=== PATIENT | female | born 1990 | race Caucasian/White ===

== ENCOUNTER 2017-02-15 16:04 | Emergency (ER) | payer BC, OTHER ==
[~2017-02-15] VITALS: Ht 160 cm; Wt 127.0 kg
[2017-02-15 16:05] VITALS: BP 158/88; PULSE 124; RESP 14; TEMP 98.7; O2SAT 99
--- NOTE | 2017-02-15 16:24 | PD ---
HPI Chief Complaint: lightheaded, nosebleed Time Seen by Provider: 16:12 Travel History International Travel<30 days: No Contact w/Intl Traveler<30days: No Traveled to known affect area: No History of Present Illness HPI This 26-year-old female says she woke up and had some blood coming from her right nostril. The bleeding stopped fairly quickly. When she was standing later she felt lightheaded but did not pass out. She did not have any chest pain. She had a cough for a couple weeks but seems to be improving. She is currently 24 weeks . This is her second . She did have some high blood pressure with her first is not on medication. She has had some elevated readings during this . She says her systolic has been 1e30 on some of her office visits. sHe has never been on antihypertensive medicine [facility] Past Medical History Diminished Hearing: No ?: Past Surgical History Appendectomy: Yes Social History Alcohol Use: Yes (OCCASIONAL) Tobacco Use: No Substance Use: No Allergies-Medications (Allergen,Severity, Reaction): Coded Allergies: No Known Allergies (Unverified , 02/15/17) Reported Meds & Prescriptions Reported Meds & Active Scripts Active Reported Plus Iron 29-1 mg ( Vit-Iron Carbonyl) 1 Tab Tab 1 Tab PO DAILY Review of Systems General / Constitutional: No: Fever, Chills Eyes: No: Diploplia, Blurred Vision HENT: Positive: Nosebleed Cardiovascular: No: Chest Pain or Discomfort Respiratory: Positive: Cough Gastrointestinal: No: Nausea, Vomiting Genitourinary: No: Urgency, Frequency Musculoskeletal: No: Myalgias, Arthralgias Skin: No Rash, No Itching Neurologic: Positive: Weakness, Dizziness Physical Exam Narrative GENERAL: Well-developed female initially blood pressure is 158/88 with pulse rate of 124 SKIN: Focused skin assessment warm/dry. HEAD: Atraumatic. Normocephalic. EYES: Pupils equal and round. No scleral icterus. No injection or drainage. ENT: No nasal bleeding or discharge. There is some dried blood in the right nostril Mucous membranes pink and moist. NECK: Trachea midline. No JVD. CARDIOVASCULAR: Regular rate and rhythm. No murmur appreciated. RESPIRATORY: No accessory muscle use. Clear to auscultation. Breath sounds equal bilaterally. GASTROINTESTINAL: Abdomen soft, non-tender, nondistended. Hepatic and splenic margins not palpable. MUSCULOSKELETAL: No obvious deformities. No clubbing. No cyanosis. No edema. NEUROLOGICAL: Awake and alert. No obvious cranial nerve deficits. Motor grossly within normal limits. Normal speech. PSYCHIATRIC: Appropriate mood and affect; insight and judgment normal. Data Data Last Documented VS Vital Signs Date Time Temp Pulse Resp B/P Pulse Ox O2 Delivery O2 Flow Rate FiO2 02/15/17 17:37 164/69 168/70 02/15/17 16:21 16 99 Room Air 02/15/17 16:05 98.7 124 Orders Complete Blood Count With Diff (02/15/17 16:19) Basic Metabolic Panel (Bmp) (02/15/17 16:19) Urinalysis - C+S If Indicated (02/15/17 16:26) Labs Laboratory Tests Test 02/15/17 02/15/17 16:40 16:49 Urine Color STRAW Urine Turbidity CLEAR Urine pH 7.0 Urine Specific [place] 1.003 Urine Protein NEG mg/dL Urine Glucose (UA) NEG mg/dL Urine Ketones NEG mg/dL Urine Occult Blood NEG Urine Nitrite NEG Urine Bilirubin NEG Urine Leukocyte Esterase TRACE Urine WBC 0-2 /hpf Urine Squamous Epithelial 0-5 /hpf Cells Microscopic Urinalysis Comment CULT NOT INDICATED White Blood Count 11.4 TH/MM3 Red Blood Count 3.89 MIL/MM3 Hemoglobin 10.7 GM/DL Hematocrit 32.1 % Mean Corpuscular Volume 82.6 FL Mean Corpuscular Hemoglobin 27.6 PG Mean Corpuscular Hemoglobin 33.4 % Concent Red Cell Distribution Width 12.8 % Platelet Count 259 TH/MM3 Mean Platelet Volume 8.2 FL Neutrophils (%) (Auto) 77.4 % Lymphocytes (%) (Auto) 13.9 % Monocytes (%) (Auto) 4.8 % Eosinophils (%) (Auto) 0.9 % Basophils (%) (Auto) 3.0 % Neutrophils # (Auto) 8.9 TH/MM3 Lymphocytes # (Auto) 1.6 TH/MM3 Monocytes # (Auto) 0.5 TH/MM3 Eosinophils # (Auto) 0.1 TH/MM3 Basophils # (Auto) 0.3 TH/MM3 CBC Comment DIFF FINAL Differential Comment Sodium Level 141 MEQ/L Potassium Level 3.6 MEQ/L Chloride Level 106 MEQ/L Carbon Dioxide Level 25.6 MEQ/L Anion Gap 9 MEQ/L Blood Urea Nitrogen 7 MG/DL Creatinine 0.57 MG/DL Estimat Glomerular Filtration 129 ML/MIN Rate Random Glucose 86 MG/DL Calcium Level 8.5 MG/DL MDM Medical Decision Making Medical Screen Exam Complete: Yes Emergency Medical Condition: Yes Medical Record Reviewed: Yes Differential Diagnosis Differential includes hypertension, epistaxis, Narrative Course Patient appeared stable in the ER. There was no further bleeding. He. Blood pressure is however have been elevated. Her most recent pressure is 168/70. I have spoken with Dr. Marrero and she recommends that the patient be transferred to the [facility] ER for evaluation of her blood pressure. Patient is stable for discharge and will go there by private vehicle Diagnosis Primary Impression: Hypertension Additional Impression: Additional Instructions: Go to [facility] ED now Mitesh Eric MD Feb 15, 2017 16:23
[2017-02-15] MEDS ORDERED: PREN29TA PO (16:34)
[2017-02-15 16:58] LABS: AUTOMATED NEUTROPHIL # 8.9 TH/MM3 (1.8-7.7); BASOPHIL # 0.3 TH/MM3 (0-0.2); EOSINOPHIL # 0.1 TH/MM3 (0-0.4); EOSINOPHIL % 0.9 % (0.0-4.0); HEMATOCRIT 32.1 % (35.0-46.0); HEMO FLAGS DIFF FINAL; LYMPH % 13.9 % (9.0-44.0); LYMPHOCYTE # 1.6 TH/MM3 (1.0-4.8); MEAN CELL VOLUME 82.6 FL (80.0-100.0); MEAN CORPUSCULAR HEMOGLOBIN 27.6 PG (27.0-34.0); MEAN CORPUSCULAR HGB CONC 33.4 % (32.0-36.0); MONO % 4.8 % (0.0-8.0); NEUT % 77.4 % (16.0-70.0); PLATELET COUNT 259 TH/MM3 (150-450); RED BLOOD COUNT 3.89 MIL/MM3 (4.00-5.30); RED CELL DISTRIBUTION WIDTH 12.8 % (11.6-17.2); WHITE BLOOD COUNT 11.4 TH/MM3 (4.0-11.0)
[2017-02-15 17:06] LABS: CHLORIDE 106 MEQ/L (98-107); POTASSIUM 3.6 MEQ/L (3.5-5.1); SODIUM (NA) 141 MEQ/L (136-145)
[2017-02-15 17:10] LABS: ANION GAP 9 MEQ/L (5-15); BICARBONATE 25.6 MEQ/L (21.0-32.0); BLOOD UREA NITROGEN 7 MG/DL (7-18)
[2017-02-15 17:13] LABS: GLOMERULAR FILTRATION RATE 129 ML/MIN (>89)
[2017-02-15 17:15] LABS: BLOOD, URINE NEG (NEG); GLUCOSE,URINE NEG (NEG); KETONE, URINE NEG (NEG); NITRITE,URINE NEG (NEG)
[2017-02-15 17:25] LABS: URINE COLOR STRAW (YELLW/STRAW)
[2017-02-15 17:26] LABS: COMMENT (UR) CULT NOT INDICATED; CULTURE IF INDICATED CULT NOT INDICATED; SQUAMOUS EPITHELIAL CELL URINE 0-5 /hpf (0-5); WBC, URINE 0-2 /hpf (0-5)
[2017-02-15 17:37] VITALS: BP_SYST 164; BP_SYST 168; BP_DIAS 69; BP_DIAS 70
[2017-02-15 18:26] VITALS: BP 166/79
[2017-02-15 20:29] LABS: ALT (GPT) 15 U/L (10-53); AST (GOT) 10 U/L (15-37)
[2017-02-15 20:30] LABS: TOTAL BILIRUBIN ADULT 0.2 MG/DL (0.2-1.0)
[2017-02-15 20:32] LABS: ALKALINE PHOSPHATASE 72 U/L (45-117)
== END 2017-02-15 18:29 | disposition home or self-care (01) ==
LOC: PHED 16:04
DX: O26.92 Pregnancy related conditions, unspecified, second trimester (principal); Z3A.24 24 weeks gestation of pregnancy; R03.0 Elevated blood-pressure reading, without diagnosis of hypertension; R04.0 Epistaxis
CPT/HCPCS: 80053; 81001; 85025; 99284

== ENCOUNTER 2017-02-15 19:21 | Emergency (ER) | payer OTHER ==
[~2017-02-15 19:21] MED LIST: PREN29TA PO
--- NOTE | 2017-02-15 23:37 | PD ---
HPI Chief Complaint High blood pressure Date Seen: Feb 15, 2017 Time Seen: 20:00 Travel History International Travel<30 Days: No Contact w/Intl Traveler<30Days: No Known Affected Area: No History of Present Illness HPI This patient is a 26-year-old white female at 23 weeks gestation [address] by [address] Zaman for care, who that's for evaluation of high blood pressure noted of the day. Patient states that she was just wasn't feeling well and went in to be checked in her pressure blood pressure was elevated somewhat and she was slightly tachycardic says she was sent up here the OB ED. She denies pain bleeding or rupture the membranes. Baby is active heart rate tracing shows a normal heart rate for 23 week her that she hard to keep on the monitor and no contractions patient's blood pressure here is 150/ 60s and 70s patient states she has no history of hypertension except just in the last week or 2 in her OB office of some pressures were: 130 over 80s range, she states that she's never had high blood pressure treated for a blood pressure before did not have high blood pressure with her first . Patient was sent over from [facility] after they dean her Blood and transferred her here for monitoring Para: 1 : 2 History Obstetric History Obstetric History 1 previous vaginal delivery Social History Alcohol Use: No Tobacco Use: No Substance Abuse: No Allergies-Medications (Allergen,Severity, Reaction): Coded Allergies: No Known Allergies (Unverified , 02/15/17) Home Meds Reported Medications Vit-Iron Carbonyl ( Plus Iron 29-1 mg)1 Tab Tab1 Tab PO DAILY #30 TAB Ref 0 02/15/17 Review of Systems General / Constitutional: No: Fever, Weight Gain, Chills, Other Eyes: No: Diploplia, Blurred Vision, Visual changes, Pain, Photophobia HENT: No: Headaches, Vertigo, Lightheadedness Cardiovascular: No: Irregular Rhythm, Chest Pain or Discomfort, Palpitations, Tachycardia, Syncope, Varicosities, Edema, Cyanosis Respiratory: No: Cough, Short of Breath, Other Gastrointestinal: No: Nausea, Vomiting, Diarrhea Genitourinary: No: Decreased Urinary Output, Oliguria Musculoskeletal: No: Limited ROM, Weakness, Cramping, Edema, Pain Skin: No Rash, No Itching, No Dryness, No Lumps, No Change in Pigmentation, No Change in Nails, No Alopecia, No Lesions Neurologic: No: Weakness, Dizziness, Syncope, Focal Abnormalities, Coordination Problem, Headache, Slurred Speech, Seizures Psychiatric: No: Depression, Suicidal Ideations, Homicidal Ideation Endocrine: No: Heat Intolerance, Cold Intolerance, Polydipsia, Polyuria, Other Physical Exam Narrative GENERAL: Well-nourished, well-developed patient. SKIN: Warm and dry. HEAD: Normocephalic and atraumatic. EYES: No scleral icterus. No injection or drainage. ENT: No nasal drainage noted. Mucous membranes pink. Airway patent. NECK: Supple, trachea midline. No JVD. CARDIOVASCULAR: Regular rate and rhythm without murmurs, gallops, or rubs. RESPIRATORY: Breath sounds equal bilaterally. No accessory muscle use. BREASTS: Bilateral exam showed no masses , no retractions, no nipple discharge. ABDOMEN/GI: Abdomen soft, non-tender, bowel sounds present, no rebound, no guarding no right upper quadrant pain or tenderness Gravid to [-23] weeks size Fundal Height: [23-] GENITOURINARY: Membranes: [intact ] Uterine Contractions: [none-] FHT's: 140s EXTREMITIES: No cyanosis or edema. BACK: Nontender without obvious deformity. No CVA tenderness. NEUROLOGICAL: Awake and alert. Motor and sensory grossly within normal limits. Five out of 5 muscle strength in all muscle groups. Normal speech. Data Data Labs Patient had labs drawn and [place] and we were able to add some lab to those blood draws all [facility] labs within normal limits, urinalysis negative for protein MDM Interpretation(s) Patient is 26-year-old white female at 23 weeks who presents for evaluation of hypertension noted at the [facility] facility, her blood pressures here been 150s over 60s and 70s consistently none showed 140/90 or higher, is no significant edema, urinalysis negative for protein, all [facility] serum lab normal patient was tachycardic to the 120s and was given a liter of IV fluid which helped decrease her pulse and that she felt better also her last blood pressure was 114/60 Plan Plan for patient to be discharged home to bedrest as much as possible follow-up with Dr. Zaman first part of next week for repeat blood pressure checks and laboratory if needed Diagnosis Diagnosis: Primary Impression: Hypertension affecting in second trimester Additional Impression: Obesity Disposition: 01 DISCHARGE HOME Condition: Stable Patient Instructions: General Instructions, Preeclampsia (ED), Abdominal Pain in (ED) Departure Forms: Tests/Procedures Antwan Frederick II, MD Feb 15, 2017 23:37
== END 2017-02-16 12:18 | disposition home or self-care (01) ==
LOC: HOBED 19:21
DX: O16.2 Unspecified maternal hypertension, second trimester (principal); O99.212 Obesity complicating pregnancy, second trimester; Z3A.23 23 weeks gestation of pregnancy
CPT/HCPCS: 76815; 96360; 96361

== ENCOUNTER 2017-05-29 18:10 | Observation (INO) | payer OTHER ==
[~2017-05-29] VITALS: Ht 160 cm; Wt 131.5 kg
[2017-05-29 19:37] LABS: BACTERIA, URINE RARE /hpf; BLOOD, URINE NEG (NEG); COMMENT (UR) CULTURE INDICATED; CULTURE IF INDICATED CULTURE INDICATED; GLUCOSE,URINE NEG (NEG); KETONE, URINE NEG (NEG); MUCUS URINE FEW /lpf (OCC); NITRITE,URINE NEG (NEG); SQUAMOUS EPITHELIAL CELL URINE 7 /hpf (0-5); URINE COLOR YELLOW (YELLW/STRAW)
[2017-05-29 20:01] LABS: ANION GAP 10 MEQ/L (5-15); AST (GOT) 15 U/L (15-37); BICARBONATE 24.2 MEQ/L (21.0-32.0); BLOOD UREA NITROGEN 13 MG/DL (7-18); CHLORIDE 105 MEQ/L (98-107); GLOMERULAR FILTRATION RATE 109 ML/MIN (>89); POTASSIUM 3.7 MEQ/L (3.5-5.1); SODIUM (NA) 139 MEQ/L (136-145); URIC ACID 4.1 MG/DL (2.6-6.0)
[2017-05-29 20:02] LABS: ALT (GPT) 21 U/L (10-53)
[2017-05-29 20:05] LABS: ALKALINE PHOSPHATASE 161 U/L (45-117); TOTAL BILIRUBIN ADULT 0.3 MG/DL (0.2-1.0)
[2017-05-29 20:12] LABS: HEMATOCRIT 33.5 % (35.0-46.0); MEAN CELL VOLUME 79.3 FL (80.0-100.0); MEAN CORPUSCULAR HEMOGLOBIN 25.9 PG (27.0-34.0); MEAN CORPUSCULAR HGB CONC 32.6 % (32.0-36.0); PLATELET COUNT 239 TH/MM3 (150-450); RED BLOOD COUNT 4.22 MIL/MM3 (4.00-5.30); RED CELL DISTRIBUTION WIDTH 14.6 % (11.6-17.2); REVIEW FLAG FINAL; WHITE BLOOD COUNT 13.3 TH/MM3 (4.0-11.0)
[2017-05-29] MEDS ORDERED: LACTATED RINGER'S 1000 ML INJ 1,000 ML IV SCH (20:26)
--- NOTE | 2017-05-29 20:26 | HHI.HP ---
HPI Chief Complaint Headaches and high blood pressure Date Seen: May 29, 2017 Travel History International Travel<30 Days: No Contact w/Intl Traveler<30Days: No Known Affected Area: No History of Present Illness HPI Patient is 26-year-old white female 38 `1/2 weeks who presents complaining of headache today and the spots in front of her eyes. Her blood pressure was up as well that time, she denies bleeding or rupture the membranes no contractions, baby is active heart rate tracing is reactive she states that she had some spots in front of her eyes were just a few seconds and has had a headache most of the day it was had a headache still in OB ED area patient sees Dr. Zaman for care and states that Blood pressures have been somewhat elevated last couple of visits. She denies right upper quadrant pain or other symptomatology Para: 1 : 2 History Obstetric History Obstetric History One vaginal delivery no complications o r blood pressure issue in that Social History Alcohol Use: No Tobacco Use: No Substance Abuse: No Allergies-Medications (Allergen,Severity, Reaction): Coded Allergies: No Known Allergies (Unverified , 02/15/17) Home Meds Reported Medications Vit-Iron Carbonyl ( Plus Iron 29-1 mg)1 Tab Tab1 Tab PO DAILY #30 TAB Ref 0 02/15/17 Review of Systems General / Constitutional: No: Fever, Weight Gain, Chills, Other Eyes: Blurred Vision, Visual changes, No: Diploplia, Pain, Photophobia HENT: Headaches, No: Vertigo, Lightheadedness Cardiovascular: No: Irregular Rhythm, Chest Pain or Discomfort, Palpitations, Tachycardia, Syncope, Varicosities, Edema, Cyanosis Respiratory: No: Cough, Short of Breath, Other Gastrointestinal: No: Nausea, Vomiting, Diarrhea Genitourinary: No: Decreased Urinary Output, Oliguria Musculoskeletal: No: Limited ROM, Weakness, Cramping, Edema, Pain Skin: No Rash, No Itching, No Dryness, No Lumps, No Change in Pigmentation, No Change in Nails, No Alopecia, No Lesions Neurologic: No: Weakness, Dizziness, Syncope, Focal Abnormalities, Coordination Problem, Headache, Slurred Speech, Seizures Psychiatric: No: Depression, Suicidal Ideations, Homicidal Ideation Endocrine: No: Heat Intolerance, Cold Intolerance, Polydipsia, Polyuria, Other Physical Exam Narrative GENERAL: Well-nourished, well-developed patient. SKIN: Warm and dry. HEAD: Normocephalic and atraumatic. EYES: No scleral icterus. No injection or drainage. ENT: No nasal drainage noted. Mucous membranes pink. Airway patent. NECK: Supple, trachea midline. No JVD. CARDIOVASCULAR: Regular rate and rhythm without murmurs, gallops, or rubs. RESPIRATORY: Breath sounds equal bilaterally. No accessory muscle use. BREASTS: Bilateral exam showed no masses , no retractions, no nipple discharge. ABDOMEN/GI: Abdomen soft, non-tender, bowel sounds present, no rebound, no guarding Gravid to [38-] weeks size Fundal Height: [-38] GENITOURINARY: External Genitalia: intact and normal in appearance BUS glands: [-] Cervix: [-] Dilatation: [4-5 cm-] Effacement: [-40] Station: [-3] Presentation: [-vtx] Membranes: [intact ] Uterine Contractions: [-none] FHT's: Category: [-1] Baseline: [133-] Reactive: [yes-] Variability: [mod-] Decels: [none-] EXTREMITIES: No cyanosis , 2+ edema. BACK: Nontender without obvious deformity. No CVA tenderness. NEUROLOGICAL: Awake and alert. Motor and sensory grossly within normal limits. Five out of 5 muscle strength in all muscle groups. Normal speech. DTRs WNL Data Data Orders Comprehensive Metabolic Panel (05/29/17 18:59) Uric Acid (05/29/17 18:59) Urinalysis - C+S If Indicated (05/29/17 18:59) Urine Culture (05/29/17 19:15) Cbc No Diff, Includes Plts (05/29/17 ) Labs Laboratory Tests Test 05/29/17 19:15 White Blood Count 13.3 Red Blood Count 4.22 Hemoglobin 10.9 Hematocrit 33.5 Mean Corpuscular Volume 79.3 Mean Corpuscular Hemoglobin 25.9 Mean Corpuscular Hemoglobin 32.6 Concent Red Cell Distribution Width 14.6 Platelet Count 239 Mean Platelet Volume 8.4 Urine Color YELLOW Urine Turbidity HAZY Urine pH 7.0 Urine Specific [place] 1.020 Urine Protein TRACE Urine Glucose (UA) NEG Urine Ketones NEG Urine Occult Blood NEG Urine Nitrite NEG Urine Bilirubin NEG Urine Urobilinogen LESS THAN 2.0 Urine Leukocyte Esterase LARGE Urine RBC LESS THAN 1 Urine WBC 11 Urine Squamous Epithelial 7 Cells Urine Bacteria RARE Urine Mucus FEW Microscopic Urinalysis Comment CULTURE INDICATED Sodium Level 139 Potassium Level 3.7 Chloride Level 105 Carbon Dioxide Level 24.2 Anion Gap 10 Blood Urea Nitrogen 13 Creatinine 0.66 Estimat Glomerular Filtration 109 Rate Random Glucose 84 Uric Acid 4.1 Calcium Level 8.9 Total Bilirubin 0.3 Aspartate Amino Transf 15 (AST/SGOT) Alanine Aminotransferase 21 (ALT/SGPT) Alkaline Phosphatase 161 Total Protein 6.8 Albumin 2.5 Date/Time Procedure Status Source Growth 05/29/17 19:15 Urine Culture Received Urine Clean Catch Pending Assessment/Plan Assessment and Plan Patient's 26-year-old white female at 38 weeks 3 days presents complaining of high blood pressure and headache and visual changes, baby is active, heart rate tracing reactive she is not danie. Denies bleeding or rupture the membranes. She states that she had some spots upon arising just a few seconds and earlier today has had a headache essentially all day and even now. She denies rupture right upper quadrant pain, pain in general no malaise, fever initial blood pressures were borderline high but subsequent pressures been within normal limits, PIH lab all within normal limits , urinalysis showed a trace protein and positive for UTI will begin on by mouth Keflex. Patient cervix. Favorable of multiparous, etc. 4--5 cm/ 40% and -3 with palpable vertex; Discussed the case with Dr. Zaman, her OB doctor, and he wanted her observed overnight for her blood pressures and reevaluated in the morning. Pressures elevated that time that would very likely admit and induce her labor Antwan Frederick II, MD May 29, 2017 20:26
[2017-05-29] MEDS ORDERED: ZOLPIDEM TARTRATE 5 MG TAB PO PRN (20:30)
[2017-05-29] MEDS ORDERED: CALCIUM GLUCONATE 10% 1 GM/10 ML VIAL IV PUSH PRN (20:30)
[2017-05-29] MEDS ORDERED: ONDANSETRON ODT 4 MG TAB PO PRN (20:30)
[2017-05-29] MEDS ORDERED: ACETAMINOPHEN 325 MG TAB PO PRN (20:30)
[2017-05-29] MEDS ORDERED: SODIUM CHLORIDE 0.9% FLUSH 5 ML FLUSH IV PRN (20:30)
[2017-05-29] MEDS ORDERED: SODIUM CHLORIDE 0.9% FLUSH 5 ML FLUSH IV SCH (21:00)
[2017-05-29] MEDS: CEPHALEXIN MONOHYDRATE 500 MG CAP PO SCH (22:10)
[2017-05-30 06:00] LABS: AUTOMATED NEUTROPHIL # 7.8 TH/MM3 (1.8-7.7); BASOPHIL % 0.2 % (0.0-2.0); EOSINOPHIL # 0.1 TH/MM3 (0-0.4); EOSINOPHIL % 0.9 % (0.0-4.0); HEMATOCRIT 31.4 % (35.0-46.0); HEMO FLAGS DIFF FINAL; LYMPH % 17.2 % (9.0-44.0); LYMPHOCYTE # 1.8 TH/MM3 (1.0-4.8); MEAN CELL VOLUME 78.9 FL (80.0-100.0); MEAN CORPUSCULAR HEMOGLOBIN 26.3 PG (27.0-34.0); MEAN CORPUSCULAR HGB CONC 33.4 % (32.0-36.0); NEUT % 74.7 % (16.0-70.0); PLATELET COUNT 218 TH/MM3 (150-450); RED BLOOD COUNT 3.98 MIL/MM3 (4.00-5.30); RED CELL DISTRIBUTION WIDTH 15.2 % (11.6-17.2); WHITE BLOOD COUNT 10.5 TH/MM3 (4.0-11.0)
[2017-05-30] MEDS: CEPHALEXIN MONOHYDRATE 500 MG CAP PO SCH (06:00)
[2017-05-30 06:50] LABS: BACTERIA, URINE RARE /hpf; BLOOD, URINE TRACE (NEG); GLUCOSE,URINE NEG (NEG); KETONE, URINE NEG (NEG); MUCUS URINE FEW /lpf (OCC); NITRITE,URINE NEG (NEG); SQUAMOUS EPITHELIAL CELL URINE 5 /hpf (0-5); TRANSITIONAL EPI CELLS, URINE <1 /hpf; URINE COLOR YELLOW (YELLW/STRAW)
[2017-05-30 06:55] LABS: COMMENT (UR) CULTURE INDICATED; CULTURE IF INDICATED CULTURE INDICATED
[2017-05-30 06:58] LABS: ALKALINE PHOSPHATASE 146 U/L (45-117); ALT (GPT) 18 U/L (10-53); ANION GAP 8 MEQ/L (5-15); AST (GOT) 11 U/L (15-37); BLOOD UREA NITROGEN 11 MG/DL (7-18); CHLORIDE 106 MEQ/L (98-107); GLOMERULAR FILTRATION RATE 124 ML/MIN (>89); SODIUM (NA) 138 MEQ/L (136-145); TOTAL BILIRUBIN ADULT 0.2 MG/DL (0.2-1.0)
--- NOTE | 2017-05-30 09:02 | HHI.DCPOC ---
Discharge Care Plan Diagnosis: (1) Hypertension affecting in second trimester Report Symptoms to Your Doctor -Temperature above 100.5 degrees -Redness, of incision or excessive or foul smelling drainage -Unusual pain or calf pain -Increased vaginal bleeding -Painful or difficulty urinating -Feelings of extreme sadness or anxiety after 2 weeks Goals to Promote Your Health * To prevent worsening of your condition and complications * To maintain your health at the optimal level Directions to Meet Your Goals Take your medications as prescribed Follow your dietary instruction Follow activity as directed Ensure plenty of rest for recovery Drink fluids for hydration Keep your appointments as scheduled Take your immunizations and boosters as scheduled If your symptoms worsen call your PCP, if no PCP go to Urgent Care Center or Emergency Room Smoking is Dangerous to Your Health. Avoid second hand smoke Call the 24-hour crisis hotline for domestic abuse at Haris James MD R1 May 30, 2017 09:02
--- NOTE | 2017-05-30 09:16 | HHI.PR ---
Subjective Remarks Doing better, no h/a this am just pressure No scotoma No RuQ pain. Baby is moving well No UCs Objective Result Diagram: 05/30/17 0515 05/30/17 0515 Other Results Chest is clear CV RRR Abd is gravid and Nt EXt no swelling DTR ar +1 Assessment and Plan Assessment and Plan IUP @ 38/4 She had headache and spots in her eyes last nite Pre eclampsia w/u is totally negative Will d/c home on Fe for the anemia and bedrest She will return marty if she starts to develop s/s of pre eclampsia. Mireille Zaman MD May 30, 2017 09:16
== END 2017-05-30 09:35 | disposition home or self-care (01) ==
LOC: HOBED 18:10 → H2EA 20:23
PROVIDERS: ADMIT Obstetrics & Gynecology; ATTEND Obstetrics & Gynecology
DX: O16.3 Unspecified maternal hypertension, third trimester (principal); O99.013 Anemia complicating pregnancy, third trimester; Z3A.38 38 weeks gestation of pregnancy; R82.99 Other abnormal findings in urine
CPT/HCPCS: 80053; 81001; 84550; 85025; 85027; 87086; G0378

== ENCOUNTER 2017-06-04 05:47 | Inpatient (IN) | payer OTHER ==
[~2017-06-04] VITALS: Ht 157.5 cm; Wt 134.7 kg
[2017-06-04] VITALS (50 sets, daily range): BP systolic 107–154; BP diastolic 52–102; PULSE 93–165; RESP 12–20; TEMP 97.8–98.7; O2SAT 100
[2017-06-04] MEDS ORDERED: MINERAL OIL 10 ML VIAL TOPICAL PRN (06:15)
[2017-06-04] MEDS ORDERED: ONDANSETRON HCL 4 MG/2 ML VIAL IV PRN (06:15)
[2017-06-04] MEDS ORDERED: LACTATED RINGER'S 1000 ML BOLUS IV PRN (06:15)
[2017-06-04] MEDS ORDERED: OXYTOCIN 30 UNITS 500ML PREMIX IV ONE (06:15)
[2017-06-04] MEDS ORDERED: PENICILLIN G POT 5,000,000 UNITS/NS 100 ML (Mini-Bag Plus) IV ONE ×2 (06:15)
[2017-06-04] MEDS ORDERED: LACTATED RINGER'S 1000 ML IV SCH (06:15)
[2017-06-04] MEDS ORDERED: LIDOCAINE HCL 1% 50 ML VIAL INFIL PRN (06:15)
[2017-06-04] MEDS ORDERED: LIDOCAINE HCL 1% 50 ML VIAL I-DERMAL PRN (06:15)
[2017-06-04] MEDS ORDERED: NS 1000 ML IV PRN (06:15)
[2017-06-04] MEDS ORDERED: NS 500 ML BOLUS IV PRN (06:15)
[2017-06-04] MEDS ORDERED: OXYTOCIN 30 UNITS/NS 500ML PREMIX IV SCH (06:15)
[2017-06-04] MEDS ORDERED: CITRIC ACID-SODIUM CITRATE LIQ 30 ML UDC PO SCH (06:15)
[2017-06-04 06:32] LABS: AUTOMATED NEUTROPHIL # 8.8 TH/MM3 (1.8-7.7); BASOPHIL % 0.3 % (0.0-2.0); EOSINOPHIL # 0.1 TH/MM3 (0-0.4); EOSINOPHIL % 0.6 % (0.0-4.0); HEMATOCRIT 34.8 % (35.0-46.0); HEMO FLAGS DIFF FINAL; LYMPH % 11.7 % (9.0-44.0); LYMPHOCYTE # 1.3 TH/MM3 (1.0-4.8); MEAN CELL VOLUME 78.8 FL (80.0-100.0); MEAN CORPUSCULAR HEMOGLOBIN 26.3 PG (27.0-34.0); MEAN CORPUSCULAR HGB CONC 33.3 % (32.0-36.0); MONO % 5.3 % (0.0-8.0); NEUT % 82.1 % (16.0-70.0); PLATELET COUNT 246 TH/MM3 (150-450); RED BLOOD COUNT 4.41 MIL/MM3 (4.00-5.30); RED CELL DISTRIBUTION WIDTH 14.9 % (11.6-17.2); WHITE BLOOD COUNT 10.7 TH/MM3 (4.0-11.0)
[2017-06-04 06:48] LABS: ALT (GPT) 19 U/L (10-53); ANION GAP 9 MEQ/L (5-15); AST (GOT) 11 U/L (15-37); BICARBONATE 25.2 MEQ/L (21.0-32.0); BLOOD UREA NITROGEN 9 MG/DL (7-18); CHLORIDE 104 MEQ/L (98-107); GLOMERULAR FILTRATION RATE 111 ML/MIN (>89); POTASSIUM 3.9 MEQ/L (3.5-5.1); SODIUM (NA) 138 MEQ/L (136-145)
[2017-06-04 06:50] LABS: ALKALINE PHOSPHATASE 170 U/L (45-117); TOTAL BILIRUBIN ADULT 0.2 MG/DL (0.2-1.0)
[2017-06-04 08:44] LABS: BACTERIA, URINE OCC /hpf; BLOOD, URINE NEG (NEG); COMMENT (UR) CULTURE INDICATED; CULTURE IF INDICATED CULTURE INDICATED; GLUCOSE,URINE NEG (NEG); KETONE, URINE NEG (NEG); MUCUS URINE FEW /lpf (OCC); NITRITE,URINE NEG (NEG); PH, URINE 6.5 (5.0-8.5); SQUAMOUS EPITHELIAL CELL URINE 6 /hpf (0-5); URINE COLOR YELLOW (YELLW/STRAW)
[2017-06-04] MEDS ORDERED: fentaNYL 2MCG-BUPIV 0.125% INJ 100 ML ONE (09:15)
[2017-06-04] MEDS ORDERED: PENICILLIN G POT 2,500,000 UNITS/NS 100 ML IV SCH ×4 (10:15→11:00)
[2017-06-04] MEDS ORDERED: NO SYSTEM NARCOTICS PRN (10:45)
[2017-06-04] MEDS ORDERED: fentaNYL 2MCG-BUPIV 0.125% 100 ML EPIDURAL SCH (10:45)
[2017-06-04] MEDS ORDERED: DO NOT ADMINISTER ANTICOAGULANTS PRN (10:45)
[2017-06-04] MEDS ORDERED: ePHEDrine/NS 25 MG/5 ML SYR IV PRN (10:45)
--- NOTE | 2017-06-04 13:51 | PD.OB.DELI ---
Delivery Date: Jun 04, 2017 Anesthesia: Epidural Episiotomy: None Vaginal Delivery: Normal Presentation: Occiput anterior Nuchal Cord: None Delayed cord clamping (45 sec): Yes Infant: Male One Minute : 9 Five Minute : 9 Weight: 8/0 Placenta: Spontaneous delivery, Intact, Uterus explored +, 3 vessel cord Laceration: No lacerations Additional Information Nice delivery of [place]. no tears Mireille Zaman MD Jun 04, 2017 13:51
[2017-06-04] MEDS ORDERED: DOCUSATE SODIUM 50 MG/SENNA 8.6 MG TAB PO PRN (14:00)
[2017-06-04] MEDS ORDERED: IBUPROFEN 600 MG TAB PO PRN (14:00)
[2017-06-04] MEDS ORDERED: ACETAMINOPHEN 325 MG TAB PO PRN (14:00)
[2017-06-04] MEDS ORDERED: ONDANSETRON ODT 4 MG TAB PO PRN (14:00)
[2017-06-04] MEDS ORDERED: WITCH HAZEL 50%/GLYCERIN 12.5% 40 PAD JAR TOPICAL PRN (14:00)
[2017-06-04] MEDS ORDERED: SODIUM CHLORIDE 0.9% FLUSH 10 ML FLUSH IV FLUSH PRN (14:00)
[2017-06-04] MEDS ORDERED: ALUMINUM/MAGNESIUM/SIMETH 30 ML CUP PO PRN (14:00)
[2017-06-04] MEDS ORDERED: ZOLPIDEM TARTRATE 5 MG TAB PO PRN (14:00)
[2017-06-04] MEDS ORDERED: oxyCODONE/ACETAMINOPHEN 5 MG/325 MG TAB PO PRN ×2 (14:00)
[2017-06-04] MEDS ORDERED: BENZOCAINE 20% TOPICAL SPRAY 60 ML CAN TOPICAL PRN (14:00)
[2017-06-04] MEDS ORDERED: OXYTOCIN 30 UNITS-500ML PREMIX 500 ML IV ONE (14:00)
[2017-06-04] MEDS ORDERED: DIPHTH/TETANUS/ACEL PERTUSSIS (BOOSTER) 0.5 ML VIAL/PFS IM ONE (16:00)
[2017-06-04] MEDS ORDERED: MEASLES, MUMPS, RUBELLA VACCINE 0.5 ML VIAL SQ ONE (16:00)
[2017-06-04] MEDS ORDERED: SODIUM CHLORIDE 0.9% FLUSH 10 ML FLUSH IV FLUSH SCH (21:00)
[2017-06-05 08:16] VITALS: BP 118/69; PULSE 100; RESP 18; TEMP 98.7
--- NOTE | 2017-06-05 08:42 | HHI.DCPOC ---
Discharge Care Plan Diagnosis: (1) Vaginal delivery Your Health Problems Are: Vaginal delivery Report Symptoms to Your Doctor -Temperature above 100.5 degrees -Redness, of incision or excessive or foul smelling drainage -Unusual pain or calf pain -Increased vaginal bleeding -Painful or difficulty urinating -Feelings of extreme sadness or anxiety after 2 weeks Goals to Promote Your Health * To prevent worsening of your condition and complications * To maintain your health at the optimal level Directions to Meet Your Goals Take your medications as prescribed Follow your dietary instruction Follow activity as directed Ensure plenty of rest for recovery Drink fluids for hydration Keep your appointments as scheduled Take your immunizations and boosters as scheduled If your symptoms worsen call your PCP, if no PCP go to Urgent Care Center or Emergency Room Smoking is Dangerous to Your Health. Avoid second hand smoke Call the 24-hour crisis hotline for domestic abuse at Licha Howard Jun 05, 2017 08:41
--- NOTE | 2017-06-05 08:44 | HHI.OB ---
Subjective Post Day: 1 Objective Vitals/I&O Vital Signs Date Time Temp Pulse Resp B/P Pulse Ox O2 Delivery O2 Flow Rate FiO2 06/04/17 21:15 98.3 06/04/17 21:15 111 20 128/79 06/04/17 16:25 98.7 123 16 06/04/17 16:25 127/83 06/04/17 15:16 119 121/66 06/04/17 14:46 118 107/52 06/04/17 14:31 123 127/65 06/04/17 14:16 124 128/90 06/04/17 14:05 145 115/64 06/04/17 14:05 135/102 06/04/17 13:46 163 135/102 06/04/17 13:39 112/77 06/04/17 13:35 98.4 06/04/17 13:35 19 06/04/17 12:31 126 115/90 06/04/17 12:02 16 06/04/17 12:01 128 130/71 06/04/17 11:31 113 06/04/17 11:09 98.0 16 06/04/17 11:01 125 147/68 06/04/17 10:44 16 06/04/17 10:31 125 06/04/17 10:16 164 143/60 06/04/17 10:10 94 06/04/17 10:10 100 06/04/17 10:10 93 06/04/17 10:05 100 06/04/17 10:05 104 06/04/17 10:05 107 06/04/17 10:01 120 122/79 06/04/17 10:00 100 06/04/17 10:00 123 06/04/17 10:00 125 06/04/17 09:56 104 146/69 06/04/17 09:55 118 06/04/17 09:55 116 06/04/17 09:51 165 126/58 06/04/17 09:50 129 06/04/17 09:50 131 06/04/17 09:46 115 154/86 06/04/17 09:45 133 06/04/17 09:45 100 06/04/17 09:45 129 06/04/17 09:41 114 06/04/17 09:41 143/65 06/04/17 09:40 118 06/04/17 09:40 115 06/04/17 09:36 102 137/65 06/04/17 09:35 111 06/04/17 09:35 111 06/04/17 09:33 106 133/80 06/04/17 09:30 99 06/04/17 09:30 97 06/04/17 09:15 143/83 06/04/17 09:10 107 06/04/17 09:05 103 06/04/17 09:00 103 Objective Remarks GENERAL: Well-nourished, well-developed patient. CARDIOVASCULAR: Regular rate and rhythm without murmurs, gallops, or rubs. RESPIRATORY: Breath sounds equal bilaterally. No accessory muscle use. ABDOMEN/GI: Abdomen soft, non-tender. Fundus: Firm, non-tender at umbilicus. GENITOURINARY: Light to moderate bleeding. EXTREMITIES: No cyanosis, generalized edema, non-tender, without signs of DVT. Medications and IVs Current Medications Medications (Trade) Dose Ordered Sig/Suad Route Start Time Stop Time Status Last Admin (NS Flush) 2 ml BID IV FLUSH 06/04/17 21:00 (NS Flush) 2 ml UNSCH PRN IV FLUSH 06/04/17 14:00 (Tylenol) 650 mg Q4H PRN PO 06/04/17 14:00 (Motrin) 600 mg Q6H PRN PO 06/04/17 14:00 (Percocet 5-325 Mg) 1 tab Q4H PRN PO 06/04/17 14:00 (Percocet 5-325 Mg) 2 tab Q4H PRN PO 06/04/17 14:00 (Americaine 20% Top Spr) 1 spray Q4H PRN TOPICAL 06/04/17 14:00 (Tucks Pads) 1 applic QID PRN TOPICAL 06/04/17 14:00 (Marla-Colace) 2 tab Q12H PRN PO 06/04/17 14:00 (Ambien) 5 mg HS PRN PO 06/04/17 14:00 (Mag-Al Plus Susp Liq) 15 ml Q8H PRN PO 06/04/17 14:00 (Zofran Odt) 4 mg Q6H PRN PO 06/04/17 14:00 (Stuartnatal Plus 3 ) 1 tab DAILY PO 06/05/17 09:00 Assessment/Plan Problem List: (1) Vaginal delivery Plan: routine Assessment and Plan PPD #1 pt doing well pain well controlled with oral pain medication bottle feeding routine care Discharge Planning consider dc tomorrow Licha Howard Jun 05, 2017 08:44
--- NOTE | 2017-06-05 08:45 | HHI.DS ---
Admission Date Jun 04, 2017 at 05:47 Discharge Date: Jun 06, 2017 Admitting Diagnosis term induction of labor Diagnosis: (1) Vaginal delivery Diagnosis: Principal Delivery Date: Jun 04, 2017 : Male Brief History term some elevated bp with induction of labor Hospital Course induction arom/pitocin routine care Pt Condition on Discharge: Good Discharge Disposition: Discharge Home Discharge Instructions Diet Instructions: As Tolerated, No Restrictions Additional Diet Instructions: Drink at least 8 - 16 oz bottles of water a day Activities You Can Perform: Shower Only-No Bath, Sitz Bath Activities to Avoid: Lifting/Bending, Sexual Activity Additional Activity Instruc.: No driving until off pain medications Do not lift anything heavier than your baby in an infant carrier Follow up Referrals: [employer] - 2 Weeks @ [facility] Licha Howard Jun 05, 2017 08:45
[2017-06-05] MEDS ORDERED: MULTIVIT/MIN/PREN/FOL AC/IRON PRENATAL TAB PO SCH (09:00)
[2017-06-05 19:10] VITALS: BP 131/81; PULSE 94; RESP 18; TEMP 98.3; O2SAT 100
[2017-06-06 09:00] VITALS: BP 144/83; PULSE 103; RESP 16; TEMP 98.3
--- NOTE | 2017-06-06 12:09 | HHI.OB ---
Subjective Post Day: 2 Objective Vitals/I&O Vital Signs Date Time Temp Pulse Resp B/P Pulse Ox O2 Delivery O2 Flow Rate FiO2 06/06/17 09:00 98.3 103 16 144/83 06/05/17 19:10 94 18 131/81 06/05/17 19:10 98.3 100 Objective Remarks GENERAL: Well-nourished, well-developed patient. CARDIOVASCULAR: Regular rate and rhythm without murmurs, gallops, or rubs. RESPIRATORY: Breath sounds equal bilaterally. No accessory muscle use. ABDOMEN/GI: Abdomen soft, non-tender. Fundus: Firm, non-tender at umbilicus. GENITOURINARY: Light to moderate bleeding. EXTREMITIES: No cyanosis, generalized edema, non-tender, without signs of DVT. Medications and IVs Current Medications Medications (Trade) Dose Ordered Sig/Suad Route Start Time Stop Time Status Last Admin (NS Flush) 2 ml BID IV FLUSH 06/04/17 21:00 (NS Flush) 2 ml UNSCH PRN IV FLUSH 06/04/17 14:00 (Tylenol) 650 mg Q4H PRN PO 06/04/17 14:00 (Motrin) 600 mg Q6H PRN PO 06/04/17 14:00 (Percocet 5-325 Mg) 1 tab Q4H PRN PO 06/04/17 14:00 (Percocet 5-325 Mg) 2 tab Q4H PRN PO 06/04/17 14:00 (Americaine 20% Top Spr) 1 spray Q4H PRN TOPICAL 06/04/17 14:00 (Tucks Pads) 1 applic QID PRN TOPICAL 06/04/17 14:00 (Marla-Colace) 2 tab Q12H PRN PO 06/04/17 14:00 (Ambien) 5 mg HS PRN PO 06/04/17 14:00 (Mag-Al Plus Susp Liq) 15 ml Q8H PRN PO 06/04/17 14:00 (Zofran Odt) 4 mg Q6H PRN PO 06/04/17 14:00 (Stuartnatal Plus 3 ) 1 tab DAILY PO 06/05/17 09:00 06/05/17 09:18 Assessment/Plan Problem List: (1) Vaginal delivery Plan: routine Assessment and Plan PPD #2 pt doing well pain well controlled not taking anything at this time bottle feeding routine care Discharge Planning dc today Licha Howard Jun 06, 2017 12:09
[2017-06-06] MEDS ORDERED: IBUP-232 PO (12:10)
== END 2017-06-06 12:40 | disposition home or self-care (01) | DRG 775 ==
LOC: H2EB 05:47 → H1EA 15:51
PROVIDERS: ADMIT Obstetrics & Gynecology; ATTEND Obstetrics & Gynecology
PROC: 10E0XZZ Delivery of Products of Conception, External Approach (ICD-10-PCS; principal; 2017-06-04)
PROC: 10907ZC Drainage of Amniotic Fluid, Therapeutic from Products of Conception, Via Natural or Artificial Opening (ICD-10-PCS; 2017-06-04)
PROC: 3E0S3CZ (ICD-10-PCS; 2017-06-04)
PROC: 00HU33Z Insertion of Infusion Device into Spinal Canal, Percutaneous Approach (ICD-10-PCS; 2017-06-04)
DX: O99.824 Streptococcus B carrier state complicating childbirth (principal); O26.899 Other specified pregnancy related conditions, unspecified trimester; R03.0 Elevated blood-pressure reading, without diagnosis of hypertension; Z37.0 Single live birth; Z3A.39 39 weeks gestation of pregnancy
CPT/HCPCS: 59025; 80053; 81001; 85025; 86900; 86901; 87086; J2540; J2590; J7120

== ENCOUNTER 2017-07-10 12:15 | Emergency (ER) | payer OTHER ==
[~2017-07-10] VITALS: Ht 160 cm; Wt 127.0 kg
[~2017-07-10 12:15] MED LIST changes: +IBUP-232 PO
[2017-07-10 12:20] VITALS: BP 192/111; PULSE 126; RESP 18; TEMP 99.5; O2SAT 99
[2017-07-10 12:27] VITALS: BP 192/111; PULSE 120; RESP 16; TEMP 99.3; O2SAT 99
--- NOTE | 2017-07-10 12:33 | PD ---
HPI Chief Complaint: Dizziness Time Seen by Provider: 12:32 Travel History International Travel<30 days: No Contact w/Intl Traveler<30days: No Traveled to known affect area: No History of Present Illness HPI 27-year-old female came to the emergency room with history of palpitation and dizziness that started at 11:00 this morning. Her called 911 and when the paramedics arrived and hooked her up to the monitor her blood pressure was high and her heart rate was in 130s. Patient says that she recently gave to their son and during the she was running occasionally high blood pressure but it was never more than 150s. After the of their son she continued to have hypertension and her OB started her on nifedipine. She had taken the first dose at 10:00 this morning after which the symptoms started. No history of chest pain. Patient never had a syncopal episode. Patient eventually decided to come by car and her drove her in. In triage her blood pressure was in 190s and heart rate in 120s. She was awake and answering questions appropriately. Says this has never happened to her before. [facility] Past Medical History Narrative Medical List of her past medical, surgical, social and family history is reviewed from the nursing note. Diminished Hearing: No Tetanus Vaccination: < 5 Years Influenza Vaccination: No ?: Not : 2 Para: 1 Miscarriage: 0 : 0 Past Surgical History Abdominal Surgery: Yes Appendectomy: Yes Social History Alcohol Use: No Tobacco Use: No Substance Use: No Allergies-Medications (Allergen,Severity, Reaction): Coded Allergies: No Known Allergies (Unverified , 07/10/17) Comments No known drug allergies. Reported Meds & Prescriptions Reported Meds & Active Scripts Active Lopressor (Metoprolol Tartrate) 50 Mg Tab 25 Mg PO BID Reported Adalat CC (Nifedipine) 30 Mg Tab 30 Mg PO DAILY Narrative Medication List of her home medications reviewed from the nursing note. Review of Systems Except as stated in HPI: all other systems reviewed are Neg Physical Exam Narrative GENERAL: Awake, alert, morbidly obese, no obvious distress SKIN: Focused skin assessment warm/dry. HEAD: Atraumatic. Normocephalic. EYES: Pupils equal and round. No scleral icterus. No injection or drainage. ENT: No nasal bleeding or discharge. Mucous membranes pink and moist. NECK: Trachea midline. No JVD. CARDIOVASCULAR: Regular rate and rhythm. Tachycardia. No murmur appreciated. RESPIRATORY: No accessory muscle use. Clear to auscultation. Breath sounds equal bilaterally. GASTROINTESTINAL: Abdomen soft, non-tender, nondistended. Hepatic and splenic margins not palpable. MUSCULOSKELETAL: No obvious deformities. No clubbing. No cyanosis. No edema. NEUROLOGICAL: Awake and alert. No obvious cranial nerve deficits. Motor grossly within normal limits. Normal speech. PSYCHIATRIC: Appropriate mood and affect; insight and judgment normal. Data Data Last Documented VS Vital Signs Date Time Temp Pulse Resp B/P (MAP) Pulse Ox O2 Delivery O2 Flow Rate FiO2 07/10/17 14:28 07/10/17 13:34 90 16 99 Room Air 07/10/17 12:27 99.3 Orders Orders Complete Blood Count With Diff (07/10/17 12:41) Basic Metabolic Panel (Bmp) (07/10/17 12:41) Metoprolol Tartrate (Lopressor) (07/10/17 12:45) Electrocardiogram (07/10/17 12:29) Labs Laboratory Tests Test 07/10/17 13:00 White Blood Count 11.3 TH/MM3 Red Blood Count 4.80 MIL/MM3 Hemoglobin 12.3 GM/DL Hematocrit 36.9 % Mean Corpuscular Volume 76.9 FL Mean Corpuscular Hemoglobin 25.7 PG Mean Corpuscular Hemoglobin Concent 33.5 % Red Cell Distribution Width 13.4 % Platelet Count 280 TH/MM3 Mean Platelet Volume 7.7 FL Neutrophils (%) (Auto) 83.4 % Lymphocytes (%) (Auto) 11.3 % Monocytes (%) (Auto) 4.5 % Eosinophils (%) (Auto) 0.7 % Basophils (%) (Auto) 0.1 % Neutrophils # (Auto) 9.4 TH/MM3 Lymphocytes # (Auto) 1.3 TH/MM3 Monocytes # (Auto) 0.5 TH/MM3 Eosinophils # (Auto) 0.1 TH/MM3 Basophils # (Auto) 0.0 TH/MM3 CBC Comment DIFF FINAL Differential Comment Blood Urea Nitrogen 16 MG/DL Creatinine 0.91 MG/DL Random Glucose 98 MG/DL Calcium Level 9.3 MG/DL Sodium Level 141 MEQ/L Potassium Level 4.3 MEQ/L Chloride Level 106 MEQ/L Carbon Dioxide Level 27.3 MEQ/L Anion Gap 8 MEQ/L Estimat Glomerular Filtration Rate 75 ML/MIN MDM Medical Decision Making Medical Screen Exam Complete: Yes Emergency Medical Condition: Yes Medical Record Reviewed: Yes Interpretation(s) Twelve-lead EKG was reviewed by me. Normal sinus rhythm, normal axis, tachycardia, nonspecific ST-T wave changes. Heart rate of 122 bpm. Differential Diagnosis Side effect from Procardia, electrolyte abnormality Narrative Course 2:13 PM patient was given 25 mg of Lopressor. She was observed on the monitor. Blood test results came back and they're within normal limits. Patient's heart rate currently is in the 80s to 90s and her blood pressure is 157/93. She says she feels better. I'll discharge her home with a prescription of Lopressor. I've asked her to stop taking the Procardia. Patient understands and is comfortable with that decision. Procedures EKG Prior to Arrival: No Diagnosis Primary Impression: Tachycardia Additional Impressions: Medication side effect Qualified Codes: T88.7XXA - Unspecified adverse effect of drug or medicament, initial encounter Palpitations Referrals: Primary Care Physician Additional Instructions: please stop taking your other blood pressure medication and instead start on the new prescription that's been given to you from ER. Keep a diary with recordings of your blood pressure. Follow-up with your primary care and take that diary with you when you go. Return to the ER if the condition worsens or any other new concerns. Med/Other Pt SpecificInfo: Prescription(s) given, Existing Med Changed ( stop taking the nifedipine) Scripts Metoprolol Tartrate (Lopressor) 50 Mg Tab 25 MG PO BID, #60 TAB 0 Refills Prov: Chico Garcia MD 07/10/17 Disposition: 01 DISCHARGE HOME Condition: Stable Chico Garcia MD Jul 10, 2017 12:33
[2017-07-10] MEDS ORDERED: ADAL30TA5 PO (12:34)
[2017-07-10] MEDS ORDERED: METOPROLOL TARTRATE 25 MG TAB PO ONE (12:45)
[2017-07-10 13:14] LABS: AUTOMATED NEUTROPHIL # 9.4 TH/MM3 (1.8-7.7); BASOPHIL % 0.1 % (0.0-2.0); EOSINOPHIL # 0.1 TH/MM3 (0-0.4); EOSINOPHIL % 0.7 % (0.0-4.0); HEMATOCRIT 36.9 % (35.0-46.0); HEMO FLAGS DIFF FINAL; LYMPH % 11.3 % (9.0-44.0); LYMPHOCYTE # 1.3 TH/MM3 (1.0-4.8); MEAN CELL VOLUME 76.9 FL (80.0-100.0); MEAN CORPUSCULAR HEMOGLOBIN 25.7 PG (27.0-34.0); MEAN CORPUSCULAR HGB CONC 33.5 % (32.0-36.0); MONO % 4.5 % (0.0-8.0); NEUT % 83.4 % (16.0-70.0); PLATELET COUNT 280 TH/MM3 (150-450); RED CELL DISTRIBUTION WIDTH 13.4 % (11.6-17.2); WHITE BLOOD COUNT 11.3 TH/MM3 (4.0-11.0)
[2017-07-10 13:22] LABS: POTASSIUM 4.3 MEQ/L (3.5-5.1)
[2017-07-10 13:26] LABS: BICARBONATE 27.3 MEQ/L (21.0-32.0)
[2017-07-10 13:34] VITALS: BP_SYST 152; BP_SYST 159; BP_DIAS 74; BP_DIAS 83; PULSE 90; RESP 16; O2SAT 99
[2017-07-10] MEDS ORDERED: METO-309 PO (14:08)
--- NOTE | 2017-07-11 17:54 | EKG ---
Date Performed: 07/10/2017 Time Performed: 12:29:45 PTAGE: 27 years EKG: SINUS TACHYCARDIA ABNORMAL RHYTHM ECG Compared to prior tracing no significant change PREVIOUS TRACING : 02/16/2015 22.33 DOCTOR: Rogers Aponte Interpretating Date/Time 07/11/2017 17:52:14
== END 2017-07-10 14:28 | disposition home or self-care (01) ==
LOC: PHED 12:15
DX: T88.7XXA Unspecified adverse effect of drug or medicament, initial encounter (principal); I10 Essential (primary) hypertension; Z79.899 Other long term (current) drug therapy
CPT/HCPCS: 80048; 85025; 93005; 99284